=== PATIENT | female | born 1960 | race Caucasian/White ===

== ENCOUNTER 2016-06-19 23:02 | Inpatient (IN) | payer BC ==
[~2016-06-19] VITALS: Ht 154.9 cm; Wt 73.6 kg
[~2016-06-19 23:02] MED LIST: ERGOCALCIF50000 UNIT PO; LISINOPRIL10 MG PO; LISINOPRIL2.5 MG PO; MELATIN3 MG PO; PANTOPRAZOLE SO40 MG PO; ROXICODONE5 MG PO; TEMAZEPAM15 MG PO; TOPROL XL25 MG PO; TYLENOL COLD &1 EACH PO; TYLENOL EXTRA500 MG PO
[2016-06-19 23:26] LABS: HEMATOCRIT 44.3 % (36.0-46.0); MCH 30.8 PG (29.0-34.0); MCHC 33.4 G/DL (30.0-36.0); MCV 92.1 FL (83-99); MEAN PLAT.VOLUME 11.3 uM^3 (9.5-12.4); PLATELET COUNT 300 K/uL (156-360); RBC DIS.WIDTH-CV 13.2 % (11.8-14.6); RBC DIS.WIDTH-SD 45.4 % (39-53); RED BLOOD COUNT 4.81 M/uL (3.80-5.20)
[2016-06-19 23:38] LABS: CHLORIDE 101 mEq/L (99-109); POTASSIUM 3.6 mEq/L (3.7-5.4); SODIUM 137 mEq/L (136-147)
[2016-06-19 23:41] LABS: GLUCOSE 111 mg/dL (70-99)
[2016-06-19 23:42] LABS: ANION GAP 9 MEQ/L (2-14)
[2016-06-19 23:43] LABS: TOTAL BILIRUBIN 0.5 mg/dL (0.0-1.0)
[2016-06-19 23:44] LABS: ALKALINE PHOSPHATASE 109 IU/L (3-129)
[2016-06-19 23:45] LABS: GFR ESTIMATE (CALCULATED) > 59 mL/min/
[2016-06-19 23:46] LABS: DIRECT BILIRUBIN 0.2 mg/dL (0.0-0.3); UREA NITROGEN (BUN) 7 mg/dL (9-23)
[2016-06-19 23:48] LABS: LIPASE 202 U/L (1.0-51.0)
[2016-06-19 23:54] LABS: TROP-I INTERPRETATION NEGATIVE; TROPONIN-I < 0.01 ng/mL (0.0-0.30)
[2016-06-20 01:23] LABS: ADD MIUA? NO; BILIRUBIN NEGATIVE; BLOOD NEGATIVE; COLOR YELLOW ((YELLOW)); GLUCOSE (STRIP) NEGATIVE; KETONES NEGATIVE; LEUKOCYTES NEGATIVE; NITRITE NEGATIVE; PROTEIN (STRIP) NEGATIVE; SPECIFIC GRAVITY 1.008 (1.000-1.030); UCUL ADDED? NO; UROBILINOGEN 0.2 MG/DL (0.2-1.0)
[2016-06-20 04:01] VITALS: BP 161/83
[2016-06-20 07:19] LABS: TROP-I INTERPRETATION NEGATIVE; TROPONIN-I 0.02 ng/mL (0.0-0.30)
[2016-06-20 07:21] LABS: LIPASE 117 U/L (1.0-51.0)
[2016-06-20 07:35] LABS: D-DIMER ELISA 0.54 mg/L FEU (< 0.57)
[2016-06-20 08:13] VITALS: BP 128/69
[2016-06-20 09:06] LABS: HEMATOCRIT 39.9 % (36.0-46.0); MCHC 33.1 G/DL (30.0-36.0); MCV 93.7 FL (83-99); MEAN PLAT.VOLUME 12.4 uM^3 (9.5-12.4); PLATELET COUNT 236 K/uL (156-360); RBC DIS.WIDTH-CV 13.5 % (11.8-14.6); RBC DIS.WIDTH-SD 46.5 % (39-53); RED BLOOD COUNT 4.26 M/uL (3.80-5.20); WHITE BLOOD COUNT 12.8 K/uL (4.1-10.2)
[2016-06-20 09:16] LABS: ALKALINE PHOSPHATASE 81 IU/L (3-129); ANION GAP 7 MEQ/L (2-14); CHLORIDE 105 MEQ/L (99-109); GFR ESTIMATE (CALCULATED) > 59 mL/min/; GLUCOSE 101 mg/dL (70-99); POTASSIUM 3.8 MEQ/L (3.7-5.4); SODIUM 138 MEQ/L (136-147); TOTAL BILIRUBIN 0.7 MG/DL (0.0-1.0); UREA NITROGEN (BUN) 5 mg/dL (9-23)
[2016-06-20 12:33] LABS: TROP-I INTERPRETATION NEGATIVE; TROPONIN-I 0.02 ng/mL (0.0-0.30)
[2016-06-20 12:39] VITALS: BP 109/65
[2016-06-20] MEDS ORDERED: LORAZEPAM0.5 MG PO (14:22)
[2016-06-20 15:30] VITALS: BP 149/74
[2016-06-20 19:34] VITALS: BP 151/75
[2016-06-21] VITALS: BP 140/66
[2016-06-21 03:56] VITALS: BP 130/55
[2016-06-21 07:45] LABS: BASOPHIL COUNT 0.1 K/uL (0-0.1); EOSINOPHIL (%) 2.9 % (0-5); EOSINOPHIL COUNT 0.2 K/uL (0-0.3); HEMATOCRIT 37.5 % (36.0-46.0); IMMATURE GRANULOCYTE (%) 0.5 % (0.0-0.7); INSTRUMENT ABS NEUTROPHIL CT 3.7 K/uL; LYMPHOCYTE COUNT 1.3 K/uL (1.0-2.8); MCH 30.8 PG (29.0-34.0); MCHC 32.5 G/DL (30.0-36.0); MCV 94.7 FL (83-99); MEAN PLAT.VOLUME 11.8 uM^3 (9.5-12.4); MONOCYTE (%) 10.2 % (3-12); MONOCYTE COUNT 0.6 K/uL (0-0.8); NEUTROPHIL (%) 63.6 % (45-76); NEUTROPHIL COUNT 3.7 K/uL (1.8-6.4); PLATELET COUNT 201 K/uL (156-360); RBC DIS.WIDTH-CV 13.6 % (11.8-14.6); RBC DIS.WIDTH-SD 47.4 % (39-53); RED BLOOD COUNT 3.96 M/uL (3.80-5.20)
[2016-06-21 07:51] LABS: WHITE BLOOD COUNT 5.8 K/uL (4.1-10.2)
[2016-06-21 07:58] LABS: ANION GAP 8 MEQ/L (2-14); CHLORIDE 108 MEQ/L (99-109); GFR ESTIMATE (CALCULATED) > 59 mL/min/; GLUCOSE 79 mg/dL (70-99); LIPASE 23 U/L (1.0-51.0); POTASSIUM 3.9 MEQ/L (3.7-5.4); SAMPLE HEMOLYSIS CHECK 0; SAMPLE ICTERIC CHECK 0; SAMPLE LIPEMIA CHECK 0; SODIUM 141 MEQ/L (136-147); UREA NITROGEN (BUN) 5 mg/dL (9-23)
[2016-06-21 07:59] LABS: ANION GAP 8 MEQ/L (2-14); CHLORIDE 108 MEQ/L (99-109); GFR ESTIMATE (CALCULATED) > 59 mL/min/; GLUCOSE 74 mg/dL (70-99); POTASSIUM 3.7 MEQ/L (3.7-5.4); SAMPLE HEMOLYSIS CHECK 0; SAMPLE ICTERIC CHECK 0; SAMPLE LIPEMIA CHECK 0; SODIUM 140 MEQ/L (136-147); TOTAL BILIRUBIN 0.8 MG/DL (0.0-1.0); UREA NITROGEN (BUN) 4 mg/dL (9-23)
[2016-06-21 08:07] LABS: ALKALINE PHOSPHATASE 104 IU/L (3-129)
[2016-06-21 08:19] VITALS: BP 134/77
[2016-06-21 12:13] VITALS: BP 137/72
[2016-06-21 15:55] VITALS: BP 136/67
[2016-06-21 19:42] VITALS: BP 131/63
[2016-06-22 00:24] VITALS: BP 157/68
[2016-06-22 03:42] VITALS: BP 120/65
[2016-06-22 07:04] LABS: HEMATOCRIT 39.1 % (36.0-46.0); MCH 30.4 PG (29.0-34.0); MCHC 32.5 G/DL (30.0-36.0); MCV 93.5 FL (83-99); MEAN PLAT.VOLUME 11.9 uM^3 (9.5-12.4); PLATELET COUNT 241 K/uL (156-360); RBC DIS.WIDTH-CV 13.2 % (11.8-14.6); RBC DIS.WIDTH-SD 45.3 % (39-53); RED BLOOD COUNT 4.18 M/uL (3.80-5.20); WHITE BLOOD COUNT 6.6 K/uL (4.1-10.2)
[2016-06-22 07:34] VITALS: BP 113/59
[2016-06-22 07:34] LABS: ALKALINE PHOSPHATASE 120 IU/L (3-129); ANION GAP 13 MEQ/L (2-14); CHLORIDE 107 MEQ/L (99-109); GFR ESTIMATE (CALCULATED) > 59 mL/min/; GLUCOSE 59 mg/dL (70-99); LIPASE 13 U/L (1.0-51.0); POTASSIUM 4.1 MEQ/L (3.7-5.4); SAMPLE HEMOLYSIS CHECK 0; SAMPLE ICTERIC CHECK 0; SAMPLE LIPEMIA CHECK 0; SODIUM 141 MEQ/L (136-147); UREA NITROGEN (BUN) 5 mg/dL (9-23)
[2016-06-22 07:36] LABS: TOTAL BILIRUBIN 0.6 MG/DL (0.0-1.0)
[2016-06-22 10:45] VITALS: BP 135/71
[2016-06-22 15:09] VITALS: BP 137/76
[2016-06-22 19:30] VITALS: BP 153/69
[2016-06-23 00:32] VITALS: BP 140/69
[2016-06-23 07:09] VITALS: BP 142/78
[2016-06-23 10:54] VITALS: BP 144/70
== END 2016-06-23 13:27 | disposition home or self-care (01) | DRG 391 ==
LOC: EME 23:02 → 5SOUTH 06-20 02:34 → EDOF 06-20 02:34 → 5SOUTH 06-20 03:33
PROVIDERS: Hospitalist; Internal Medicine Gastroenterology
DX: K20.9 Esophagitis, unspecified (principal); K85.90 Acute pancreatitis without necrosis or infection, unspecified; I10 Essential (primary) hypertension; K86.1 Other chronic pancreatitis; K59.00 Constipation, unspecified; K21.9 Gastro-esophageal reflux disease without esophagitis; R07.9 Chest pain, unspecified; Z90.49 Acquired absence of other specified parts of digestive tract; F17.210 Nicotine dependence, cigarettes, uncomplicated
CPT/HCPCS: 71020; 74176; 80048; 80053; 80076; 81003; 82948; 83690; 84484; 85025; 85027; 85379; 93005; 99281; 99285; C9113; J1644; J2270; J2405; J7030; J7042

== ENCOUNTER 2016-08-17 07:52 | Outpatient (CLI) | payer BC ==
[~2016-08-17] VITALS: Ht 154.9 cm; Wt 78.4 kg
[~2016-08-17 07:52] MED LIST changes: +LORAZEPAM0.5 MG PO
[2016-08-17] MEDS ORDERED: BENTYL10 MG PO (08:18)
[2016-08-17 14:15] VITALS: BP 139/71
[2016-08-17 14:33] VITALS: BP 139/71
[2016-08-17 16:00] VITALS: BP 112/56
[2016-08-17 20:14] VITALS: BP 113/86
[2016-08-17 23:47] VITALS: BP 113/53
[2016-08-18 03:40] VITALS: BP 105/55
[2016-08-18 07:09] LABS: HEMATOCRIT 34.2 % (36.0-46.0); MCH 32.1 PG (29.0-34.0); MCHC 34.2 G/DL (30.0-36.0); MCV 93.7 FL (83-99); MEAN PLAT.VOLUME 11.5 uM^3 (9.5-12.4); PLATELET COUNT 247 K/uL (156-360); RBC DIS.WIDTH-CV 13.7 % (11.8-14.6); RBC DIS.WIDTH-SD 47.5 % (39-53); RED BLOOD COUNT 3.65 M/uL (3.80-5.20); WHITE BLOOD COUNT 15.7 K/uL (4.1-10.2)
[2016-08-18 07:30] LABS: ALKALINE PHOSPHATASE 80 IU/L (3-129); ANION GAP 8 MEQ/L (2-14); CHLORIDE 108 MEQ/L (99-109); GFR ESTIMATE (CALCULATED) > 59 mL/min/; GLUCOSE 92 mg/dL (70-99); POTASSIUM 3.9 MEQ/L (3.7-5.4); SAMPLE HEMOLYSIS CHECK 0; SAMPLE ICTERIC CHECK 0; SAMPLE LIPEMIA CHECK 0; SODIUM 140 MEQ/L (136-147); TOTAL BILIRUBIN 0.8 MG/DL (0.0-1.0); UREA NITROGEN (BUN) 9 mg/dL (9-23)
[2016-08-18 08:00] VITALS: BP 104/52
[2016-08-18 15:47] VITALS: BP 137/62
[2016-08-19] MEDS ORDERED: NORCO 5/3251 TABLET PO (21:15)
== END 2016-08-18 17:41 | disposition home or self-care (01) ==
LOC: AMB 07:52 → 2SOUTH 12:40 → 2EASTP 12:40 → 2SOUTH 12:40 → 2EASTP 14:06
PROVIDERS: Internal Medicine Gastroenterology
DX: K85.90 Acute pancreatitis without necrosis or infection, unspecified (principal); K86.1 Other chronic pancreatitis; K86.89 Other specified diseases of pancreas; K83.8 Other specified diseases of biliary tract; R10.11 Right upper quadrant pain; Z90.49 Acquired absence of other specified parts of digestive tract
CPT/HCPCS: 74330; 80053; 85027; 87081; 94799; C1726; C1757; C1769; C2625; G0378; J0330; J1100; J1170; J2250; J2405; J2765; J3010; J7120

== ENCOUNTER 2016-08-19 18:01 | Emergency (ER) | payer BC ==
[~2016-08-19] VITALS: Ht 154.9 cm; Wt 70.6 kg
[~2016-08-19 18:01] MED LIST changes: +BENTYL10 MG PO
[2016-08-19 18:41] LABS: HEMATOCRIT 40.7 % (36.0-46.0); MCHC 33.2 G/DL (30.0-36.0); MCV 93.6 FL (83-99); MEAN PLAT.VOLUME 10.7 uM^3 (9.5-12.4); PLATELET COUNT 267 K/uL (156-360); RBC DIS.WIDTH-CV 13.7 % (11.8-14.6); RBC DIS.WIDTH-SD 47.4 % (39-53); RED BLOOD COUNT 4.35 M/uL (3.80-5.20); WHITE BLOOD COUNT 13.7 K/uL (4.1-10.2)
[2016-08-19 18:51] LABS: CHLORIDE 108 mEq/L (99-109); POTASSIUM 4.2 mEq/L (3.7-5.4); SODIUM 141 mEq/L (136-147)
[2016-08-19 18:54] LABS: ANION GAP 8 MEQ/L (2-14)
[2016-08-19 18:55] LABS: TOTAL BILIRUBIN 1.7 mg/dL (0.0-1.0)
[2016-08-19 18:57] LABS: ALKALINE PHOSPHATASE 110 IU/L (3-129); GFR ESTIMATE (CALCULATED) > 59 mL/min/
[2016-08-19 18:58] LABS: GLUCOSE 120 mg/dL (70-99); UREA NITROGEN (BUN) 3 mg/dL (9-23)
[2016-08-19 19:00] LABS: LIPASE 21 U/L (1.0-51.0)
[2016-08-19 19:35] LABS: ADD MIUA? YES; BILIRUBIN NEGATIVE; BLOOD SMALL; COLOR YELLOW ((YELLOW)); GLUCOSE (STRIP) NEGATIVE; KETONES 5; LEUKOCYTES NEGATIVE; NITRITE NEGATIVE; PROTEIN (STRIP) NEGATIVE; SPECIFIC GRAVITY 1.005 (1.000-1.030)
[2016-08-19 19:45] LABS: BACTERIA RARE /HPF; EPITHELIAL CELLS RARE /HPF; MUCUS NONE SEEN /LPF; RED BLOOD CELLS 0-5 /HPF (0-5); UCUL ADDED? NO; WHITE BLOOD CELLS 0-5 /HPF (0-5)
[2016-08-19] MEDS ORDERED: NORCO 5/3251 TABLET PO (21:15)
[2016-08-19 21:24] VITALS: BP 152/90
== END 2016-08-19 21:26 | disposition home or self-care (01) ==
LOC: EME 18:01
DX: G89.18 Other acute postprocedural pain (principal); R10.13 Epigastric pain; R11.0 Nausea; I10 Essential (primary) hypertension; Z72.0 Tobacco use
CPT/HCPCS: 74022; 80053; 81003; 83690; 85027; 93005; 99281; 99285; J2270; J2405; J7030

== ENCOUNTER 2016-09-26 20:16 | Emergency (ER) | payer OTHER, BC ==
[~2016-09-26] VITALS: Ht 154.9 cm; Wt 69.0 kg
[~2016-09-26 20:16] MED LIST changes: +NORCO 5/3251 TABLET PO
[2016-09-26] MEDS ORDERED: TRAMADOL HCL50 MG PO (22:55)
[2016-09-26] MEDS ORDERED: SKELAXIN800 MG PO (22:55)
[2016-09-26] MEDS ORDERED: NAPROSYN500 MG PO (22:55)
[2016-09-26 23:15] VITALS: BP 143/81
== END 2016-09-26 23:19 | disposition home or self-care (01) ==
LOC: EME 20:16
DX: S16.1XXA Strain of muscle, fascia and tendon at neck level, initial encounter (principal); G44.209 Tension-type headache, unspecified, not intractable; V49.40XA Driver injured in collision with unspecified motor vehicles in traffic accident, initial encounter; I10 Essential (primary) hypertension; Z72.0 Tobacco use
CPT/HCPCS: 72050; 99281; 99284; J1885

== ENCOUNTER 2017-07-26 14:55 | Emergency (ER) | payer BC ==
[~2017-07-26] VITALS: Ht 154.9 cm; Wt 75.8 kg
[~2017-07-26 14:55] MED LIST changes: +NAPROSYN500 MG PO; +SKELAXIN800 MG PO; +TRAMADOL HCL50 MG PO
[2017-07-26 15:51] LABS: HEMATOCRIT 43.7 % (36.0-46.0); HEMOGLOBIN 14.9 G/DL (11.9-15.5); MCH 31.5 PG (29.0-34.0); MCHC 34.1 G/DL (30.0-36.0); MCV 92.4 FL (83-99); PLATELET COUNT 281 K/uL (156-360); RBC DIS.WIDTH-CV 13.2 % (11.8-14.6); RBC DIS.WIDTH-SD 44.6 % (39-53); RED BLOOD COUNT 4.73 M/uL (3.80-5.20); WHITE BLOOD COUNT 11.6 K/uL (4.1-10.2)
[2017-07-26 16:04] LABS: CHLORIDE 105 mEq/L (99-109); POTASSIUM 3.6 mEq/L (3.7-5.4); SODIUM 139 mEq/L (136-147)
[2017-07-26 16:06] LABS: GLUCOSE 113 mg/dL (70-99)
[2017-07-26 16:10] LABS: CREATININE 0.7 mg/dL (0.6-1.3); GFR ESTIMATE (CALCULATED) > 59 mL/min/
[2017-07-26 16:11] LABS: UREA NITROGEN (BUN) 7 mg/dL (9-23)
[2017-07-26 17:14] LABS: ERTH.SED.RATE 23 MM/HR (0-30)
[2017-07-26] MEDS ORDERED: REGLAN10 MG PO (17:47)
[2017-07-26] MEDS ORDERED: IMITREX25 MG PO (17:59)
[2017-07-26] MEDS ORDERED: PERCOCET 5/31 TABLET PO (17:59)
[2017-07-26 18:29] VITALS: BP 168/94
== END 2017-07-26 18:32 | disposition home or self-care (01) ==
LOC: EME 14:55
PROVIDERS: Emergency Medicine
DX: R51 Headache (principal); I10 Essential (primary) hypertension; F41.9 Anxiety disorder, unspecified; F32.9 Major depressive disorder, single episode, unspecified; K58.9 Irritable bowel syndrome, unspecified; F17.200 Nicotine dependence, unspecified, uncomplicated; Z90.49 Acquired absence of other specified parts of digestive tract; Z90.710 Acquired absence of both cervix and uterus
CPT/HCPCS: 70450; 80048; 85027; 85651; 99281; 99285; J2765; J3030; J7030

== ENCOUNTER 2017-11-05 17:49 | Inpatient (IN) | payer BC ==
[~2017-11-05] VITALS: Ht 165.1 cm; Wt 76.3 kg
[~2017-11-05 17:49] MED LIST changes: +IMITREX25 MG PO; +PERCOCET 5/31 TABLET PO; +REGLAN10 MG PO
[2017-11-05 19:09] LABS: HEMATOCRIT 40.7 % (36.0-46.0); HEMOGLOBIN 14.5 G/DL (11.9-15.5); MCH 31.9 PG (29.0-34.0); MCHC 35.6 G/DL (30.0-36.0); MCV 89.5 FL (83-99); PLATELET COUNT 293 K/uL (156-360); RBC DIS.WIDTH-CV 12.9 % (11.8-14.6); RBC DIS.WIDTH-SD 42.4 % (39-53); RED BLOOD COUNT 4.55 M/uL (3.80-5.20); WHITE BLOOD COUNT 14.2 K/uL (4.1-10.2)
[2017-11-05 19:24] LABS: ALBUMIN 4.1 g/dL (3.2-4.8); CHLORIDE 105 mEq/L (99-109); POTASSIUM 3.6 mEq/L (3.7-5.4); SODIUM 139 mEq/L (136-147)
[2017-11-05 19:25] LABS: AMYLASE 79 IU/L (1-118)
[2017-11-05 19:27] LABS: GLUCOSE 121 mg/dL (70-99); TOTAL PROTEIN 7.6 g/dL (6.4-8.3)
[2017-11-05 19:29] LABS: TOTAL BILIRUBIN 0.5 mg/dL (0.0-1.0)
[2017-11-05 19:30] LABS: ALKALINE PHOSPHATASE 139 IU/L (3-129); CREATININE 0.7 mg/dL (0.6-1.3); GFR ESTIMATE (CALCULATED) > 59 mL/min/
[2017-11-05 19:31] LABS: UREA NITROGEN (BUN) 7 mg/dL (9-23)
[2017-11-05 19:32] LABS: AST (GOT) 26 IU/L (2-34); TROP-I INTERPRETATION NEGATIVE; TROPONIN-I < 0.01 ng/mL (0.0-0.30)
[2017-11-05 19:33] LABS: ALT (GPT) 20 IU/L (3-49)
[2017-11-05 19:34] LABS: LIPASE 66 U/L (1.0-51.0)
[2017-11-05 20:47] LABS: APPEARANCE CLEAR ((CLEAR)); BILIRUBIN NEGATIVE; BLOOD SMALL; COLOR STRAW ((YELLOW)); GLUCOSE (STRIP) NEGATIVE; KETONES NEGATIVE; LEUKOCYTES NEGATIVE; NITRITE NEGATIVE; PROTEIN (STRIP) NEGATIVE; SPECIFIC GRAVITY 1.012 (1.000-1.030); UROBILINOGEN 0.2 MG/DL (0.2-1.0)
[2017-11-05 20:58] LABS: BACTERIA NONE SEEN /HPF; EPITHELIAL CELLS RARE /HPF; MUCUS NONE SEEN /LPF; RED BLOOD CELLS 0-5 /HPF (0-5); UCUL ADDED? NO; WHITE BLOOD CELLS 0-5 /HPF (0-5)
[2017-11-05 23:01] LABS: TROP-I INTERPRETATION NEGATIVE; TROPONIN-I < 0.01 ng/mL (0.0-0.30)
[2017-11-05] MEDS ORDERED: PROPRANOLOL HCL60 MG PO (23:47)
[2017-11-05] MEDS ORDERED: AMOX TR-K CLV1 EAC4 PO (23:47)
[2017-11-05] MEDS ORDERED: BENZONATATE100 MG PO (23:47)
[2017-11-05] MEDS ORDERED: SUMATRIPTAN SUC25 MG PO (23:48)
[2017-11-05] MEDS ORDERED: INDERAL10 MG PO (23:49)
[2017-11-05] MEDS ORDERED: LO-DOSE ASPIRIN81 M2 PO (23:50)
[2017-11-06] VITALS (7 sets, daily range): BP systolic 133–188; BP diastolic 65–86
[2017-11-06 02:07] LABS: TRIGLYCERIDES 390 MG/DL (Normal: <150)
[2017-11-06 05:45] LABS: BASOPHIL (%) 0.6 % (0-1); BASOPHIL COUNT 0.1 K/uL (0-0.1); EOSINOPHIL (%) 1.9 % (0-5); EOSINOPHIL COUNT 0.3 K/uL (0-0.3); HEMATOCRIT 39.5 % (36.0-46.0); HEMOGLOBIN 13.5 G/DL (11.9-15.5); IMMATURE GRANULOCYTE (%) 0.5 % (0.0-0.7); LYMPHOCYTE (%) 15.9 % (15-42); LYMPHOCYTE COUNT 2.1 K/uL (1.0-2.8); MCH 31.3 PG (29.0-34.0); MCHC 34.2 G/DL (30.0-36.0); MCV 91.6 FL (83-99); MONOCYTE (%) 8.9 % (3-12); MONOCYTE COUNT 1.2 K/uL (0-0.8); NEUTROPHIL (%) 72.2 % (45-76); NEUTROPHIL COUNT 9.4 K/uL (1.8-6.4); PLATELET COUNT 271 K/uL (156-360); RBC DIS.WIDTH-CV 13.2 % (11.8-14.6); RBC DIS.WIDTH-SD 44.5 % (39-53); RED BLOOD COUNT 4.31 M/uL (3.80-5.20)
[2017-11-06 06:06] LABS: ALBUMIN 3.7 G/DL (3.2-4.8); ALKALINE PHOSPHATASE 115 IU/L (3-129); ALT (GPT) 14 IU/L (3-49); AST (GOT) 18 IU/L (2-34); CHLORIDE 105 MEQ/L (99-109); CREATININE 0.6 MG/DL (0.6-1.3); GFR ESTIMATE (CALCULATED) > 59 mL/min/; GLUCOSE 111 mg/dL (70-99); SODIUM 139 MEQ/L (136-147); TOTAL BILIRUBIN 0.6 MG/DL (0.0-1.0); TOTAL PROTEIN 6.2 G/DL (6.4-8.3); UREA NITROGEN (BUN) 6 mg/dL (9-23)
[2017-11-06 17:18] LABS: TROP-I INTERPRETATION NEGATIVE; TROPONIN-I < 0.01 ng/mL (0.0-0.30)
[2017-11-07 03:39] VITALS: BP 132/62
[2017-11-07 05:32] LABS: HEMATOCRIT 37.4 % (36.0-46.0); HEMOGLOBIN 12.7 G/DL (11.9-15.5); MCH 31.1 PG (29.0-34.0); MCV 91.7 FL (83-99); PLATELET COUNT 227 K/uL (156-360); RBC DIS.WIDTH-CV 13.3 % (11.8-14.6); RBC DIS.WIDTH-SD 44.9 % (39-53); RED BLOOD COUNT 4.08 M/uL (3.80-5.20); WHITE BLOOD COUNT 10.3 K/uL (4.1-10.2)
[2017-11-07 06:12] LABS: ALBUMIN 3.1 G/DL (3.2-4.8); ALKALINE PHOSPHATASE 131 IU/L (3-129); ALT (GPT) 24 IU/L (3-49); CHLORIDE 106 MEQ/L (99-109); CREATININE 0.6 MG/DL (0.6-1.3); GFR ESTIMATE (CALCULATED) > 59 mL/min/; GLUCOSE 93 mg/dL (70-99); LIPASE 33 U/L (1.0-51.0); POTASSIUM 3.9 MEQ/L (3.7-5.4); SODIUM 141 MEQ/L (136-147); TOTAL BILIRUBIN 0.7 MG/DL (0.0-1.0); TOTAL PROTEIN 5.6 G/DL (6.4-8.3); UREA NITROGEN (BUN) 5 mg/dL (9-23)
[2017-11-07 06:16] LABS: AST (GOT) 30 IU/L (2-34)
[2017-11-07 07:14] VITALS: BP 126/60
[2017-11-07 11:27] VITALS: BP 133/61
[2017-11-07 15:13] VITALS: BP 157/72
[2017-11-07 19:54] VITALS: BP 168/74
[2017-11-08] VITALS (7 sets, daily range): BP systolic 137–172; BP diastolic 58–79
[2017-11-08 09:50] LABS: HEMATOCRIT 38.5 % (36.0-46.0); HEMOGLOBIN 13.2 G/DL (11.9-15.5); MCH 31.4 PG (29.0-34.0); MCHC 34.3 G/DL (30.0-36.0); MCV 91.4 FL (83-99); PLATELET COUNT 249 K/uL (156-360); RBC DIS.WIDTH-CV 13.2 % (11.8-14.6); RBC DIS.WIDTH-SD 44.3 % (39-53); RED BLOOD COUNT 4.21 M/uL (3.80-5.20); WHITE BLOOD COUNT 9.5 K/uL (4.1-10.2)
[2017-11-08 10:01] LABS: CHLORIDE 105 mEq/L (99-109); POTASSIUM 4.1 mEq/L (3.7-5.4); SODIUM 141 mEq/L (136-147)
[2017-11-08 10:06] LABS: GLUCOSE 141 mg/dL (70-99)
[2017-11-08 10:07] LABS: CREATININE 0.7 mg/dL (0.6-1.3); GFR ESTIMATE (CALCULATED) > 59 mL/min/
[2017-11-08 10:08] LABS: UREA NITROGEN (BUN) 4 mg/dL (9-23)
[2017-11-09 03:40] VITALS: BP 133/63
[2017-11-09 07:28] VITALS: BP 137/63
[2017-11-09 11:09] LABS: C DIFF TOXIN POSITIVE (NEGATIVE)
[2017-11-09 11:31] VITALS: BP 173/76
[2017-11-09 15:53] VITALS: BP 145/80
[2017-11-10] VITALS: BP 153/65
[2017-11-10 05:45] LABS: HEMATOCRIT 35.8 % (36.0-46.0); MCH 31.1 PG (29.0-34.0); MCHC 33.5 G/DL (30.0-36.0); MCV 92.7 FL (83-99); PLATELET COUNT 213 K/uL (156-360); RBC DIS.WIDTH-CV 13.2 % (11.8-14.6); RBC DIS.WIDTH-SD 45.3 % (39-53); RED BLOOD COUNT 3.86 M/uL (3.80-5.20); WHITE BLOOD COUNT 7.4 K/uL (4.1-10.2)
[2017-11-10 06:25] LABS: CHLORIDE 107 MEQ/L (99-109); CREATININE 0.6 MG/DL (0.6-1.3); GFR ESTIMATE (CALCULATED) > 59 mL/min/; POTASSIUM 3.8 MEQ/L (3.7-5.4); SODIUM 142 MEQ/L (136-147); UREA NITROGEN (BUN) 7 mg/dL (9-23)
[2017-11-10 06:31] LABS: GLUCOSE 96 mg/dL (70-99)
[2017-11-10 07:27] VITALS: BP 160/67
[2017-11-10] MEDS ORDERED: VANCOMYCIN HCL125 MG PO (10:33)
== END 2017-11-10 11:58 | disposition home or self-care (01) | DRG 439 ==
LOC: EME 17:49 → EDOF 11-06 00:15 → 5SOUTH 11-06 00:15 → ENRESERV 11-06 00:21 → 5SOUTH 11-06 02:25 → ENPENDDIS 11-10 10:38 → 5SOUTH 11-10 11:58
PROVIDERS: Hospitalist; Internal Medicine Gastroenterology; Nurse Practitioner Adult Health; Physician Assistant
DX: K85.10 Biliary acute pancreatitis without necrosis or infection (principal); A04.72 Enterocolitis due to Clostridium difficile, not specified as recurrent; F33.9 Major depressive disorder, recurrent, unspecified; F17.210 Nicotine dependence, cigarettes, uncomplicated; I10 Essential (primary) hypertension; K58.9 Irritable bowel syndrome, unspecified; K86.1 Other chronic pancreatitis; F41.9 Anxiety disorder, unspecified; Z80.0 Family history of malignant neoplasm of digestive organs; Z90.49 Acquired absence of other specified parts of digestive tract; Z90.710 Acquired absence of both cervix and uterus; Z80.1 Family history of malignant neoplasm of trachea, bronchus and lung; Z80.3 Family history of malignant neoplasm of breast; Z80.49 Family history of malignant neoplasm of other genital organs; Z82.3 Family history of stroke; Z82.49 Family history of ischemic heart disease and other diseases of the circulatory system; Z83.3 Family history of diabetes mellitus
CPT/HCPCS: 71275; 74177; 80048; 80053; 81003; 82150; 83690; 84478; 84484; 85025; 85027; 87493; 93005; 99281; 99285; C9113; J0360; J1170; J1644; J2270; J2405; J3010; J7030; J7120